=== PATIENT | male | born 1935 | race Caucasian/White ===

== ENCOUNTER 2018-12-03 03:44 | Emergency (ER) | payer MEDICARE, MEDICAID ==
--- NOTE | 2018-12-03 04:01 | ED Physician Chart ---
ED Chief Complaint/HPI - Patient Information Date Seen:: 12/03/18 Time Seen:: 03:56 Chief Complaint:: vomiting History of Present Illness:: this is an 83 yr old male alf patient was sent here for an evaluation after vomiting coffee ground vomitus and sustained trauma to the forehead from an accident. Allergies:: Allergies Allergy/AdvReac Type Severity Reaction Status Date / Time fluconazole Allergy Verified 12/03/18 03:48 levofloxacin [From Levaquin] Allergy Verified 12/03/18 03:48 methenamine Allergy Verified 12/03/18 03:48 Vitals:: Vital Signs - 8 hr 12/03/18 03:49 Temp 98.5 F HR 92 RR 16 BP 160/77 O2 Sat % 92 Historian:: Medical Records Review:: Nurse's Note Reviewed <Jeet Lao - Last Filed: 12/03/18 05:12> - Patient Information Allergies:: Allergies Allergy/AdvReac Type Severity Reaction Status Date / Time fluconazole Allergy Verified 12/03/18 03:48 levofloxacin [From Levaquin] Allergy Verified 12/03/18 03:48 methenamine Allergy Verified 12/03/18 03:48 Vitals:: Vital Signs - 8 hr 12/03/18 12/03/18 12/03/18 11:37 14:00 17:32 HR 76 80 75 RR 19 97 17 BP 146/62 146/62 164/66 O2 Sat % 100 97 100 <Arjun Miguel - Last Filed: 12/03/18 18:38> ED Review of Systems - Review of Systems General/Constitutional: No fever, No chills, No weight loss, No weakness, No diaphoresis, No edema, No loss of appetite, Other (this patient is unable to give a review of systems.) Skin: No skin lesions, No rash, No bruising Head: No headache, No light-headedness Eyes: No loss of vision, No pain, No diplopia ENT: No earache, No nasal drainage, No sore throat, No tinnitus Neck: No neck pain, No swelling, No thyromegaly, No stiffness, No mass noted Cardio Vascular: No chest pain, No palpitations, No PND, No orthopnea, No edema Pulmonary: No SOB, No cough, No sputum, No wheezing GI: No nausea, No vomiting, No diarrhea, No pain, No melena, No hematochezia, No constipation, No hematemesis G/U: No dysuria, No frequency, No hematuria Musculoskeletal: No bone or joint pain, No back pain, No muscle pain Endocrine: No polyuria, No polydipsia Psychiatric: No prior psych history, No depression, No anxiety, No suicidal ideation Hematopoietic: No bruising, No lymphadenopathy Allergic/Immuno: No urticaria, No angioedema Neurological: No syncope, No focal symptoms, No weakness, No paresthesia, No headache, No seizure, No dizziness, No confusion, No vertigo <Jeet Lao - Last Filed: 12/03/18 05:12> ED Past Medical History - Past Medical History Obtainable: Yes Past Medical History: HTN, DM, CVA/TIA, Dyslipidemia, ESRD, Dementia Family History: None Social History: Non Smoker, No Alcohol, No Drug Use, Care Facility Surgical History: None Psychiatricy History: Schizophrenia, Dementia Medication: Reviewed <Jeet Lao Last Filed: 12/03/18 05:12> Family Medical History - Family Member Mother History Unknown: Yes <ShiloJeet Busch Last Filed: 12/03/18 05:12> ED Physical Exam - Physical Examination General/Constitutional: Awake, Well-developed, well-nourished, Alert, No distress, GCS 15, Non-toxic appearing, Ambulatory Other Gen/Cons comments:: lethargic and not responsive to verbal commands. Head: Atraumatic (hematoma of the forehead) Eyes: Lids, conjuctiva normal, PERRL, EOMI Skin: Nl inspection, No rash, No skin lesions, No ecchymosis, Well hydrated, No lymphadenopathy ENMT: External ears, nose nl, Nasal exam nl, Lips, teeth, gums nl Neck: Nontender, Full ROM w/o pain, No JVD, No nuchal rigidity, No bruit, No mass, No stridor Respiratory: Nl effort/Exclusion, Clear to Auscultation, No Wheeze/Rhonchi/Rales Cardio Vascular: RRR, No murmur, gallop, rubs, NL S1 S2 GI: No tenderness/rebounding/guarding, No organomegaly, No hernia, Normal BS's, Nondistended, No mass/bruits, No McBurney tenderness : No CVA tenderness Extremities: No tenderness or effusion, Full ROM, normal strength in all extremities, No edema, Normal digits & nails Other Extremities comments:: severe muscle wasting of all four extremities. Neuro/Psych: Alert/oriented (the patient is alert and verbal but slightly lethargic), DTR's symmetric, Normal sensory exam, Normal motor strength, Judgement/insight normal, Mood normal, Normal gait, No focal deficits Other Neuro/Psych comments:: generalize weakness and disoriented times four there is partial paralysis of both upper extremities Misc: Normal back, No paraspinal tenderness <Jeet Lao - Last Filed: 12/03/18 05:12> ED Labs/Radiology/EKG Results - Radiology Results Results: ct scan of the head = subdural hemorrhage along the right frontotempral area ct of the abdomen = distented stomach, distended bladder, ,compression deformity ot t12 - EKG Interpretations EKG Time:: 04:35 Rate & Rhythm: rate =82, sinus Speer: left <Jeet aLo - Last Filed: 12/03/18 05:12> - Lab Results Results: Laboratory Tests 12/03/18 12/03/18 12/03/18 05:43 05:43 05:43 WBC 10.8 RBC 3.70 L Hgb 8.8 L Hct 27.9 L MCV 75.4 L MCH 23.7 L MCHC Differential 31.4 RDW 16.9 Plt Count 324 MPV 8.3 Add Manual Diff YES Neutrophils (Manual) 79 Lymphocytes 16 L Monocytes 4 Eosinophils 1 Platelet Estimate ADEQUATE Microcytosis 1+ PT 10.8 INR 1.04 Sodium 149 H Potassium 3.3 L Chloride 106 Carbon Dioxide 34.6 H Anion Gap 11.7 BUN 28 H Creatinine 1.0 Est GFR ( Amer) TNP Est GFR (Non-Af Amer) TNP BUN/Creatinine Ratio 28.0 Glucose 154 H Calcium 9.0 Total Bilirubin 0.3 AST 40 H ALT 45 Alkaline Phosphatase 141 H Troponin I Total Protein 6.9 Albumin 3.3 L Globulin 3.6 Albumin/Globulin Ratio 0.9 L Amylase 54 12/03/18 05:43 WBC RBC Hgb Hct MCV MCH MCHC Differential RDW Plt Count MPV Add Manual Diff Neutrophils (Manual) Lymphocytes Monocytes Eosinophils Platelet Estimate Microcytosis PT INR Sodium Potassium Chloride Carbon Dioxide Anion Gap BUN Creatinine Est GFR ( Amer) Est GFR (Non-Af Amer) BUN/Creatinine Ratio Glucose Calcium Total Bilirubin AST ALT Alkaline Phosphatase Troponin I 0.01 Total Protein Albumin Globulin Albumin/Globulin Ratio Amylase <Arjun Miguel - Last Filed: 12/03/18 18:38> ED Assessment - Assessment General Assessment: subdural hematoma bladder distention upper gi bleeding anemia <Jeet Lao - Last Filed: 12/03/18 05:12> ED Septic Shock - . Is Septic Shock (SBP<90, OR Lactate>4 mmol\L) present?: No - <6hrs of presentation: Vital Signs: Vital Signs - 8 hr 12/03/18 03:49 Temp 98.5 F HR 92 RR 16 BP 160/77 O2 Sat % 92 <Jeet Lao - Last Filed: 12/03/18 05:12> - . Is Septic Shock (SBP<90, OR Lactate>4 mmol\L) present?: No - <6hrs of presentation: Vital Signs: Vital Signs - 8 hr 12/03/18 12/03/18 12/03/18 11:37 14:00 17:32 HR 76 80 75 RR 19 97 17 BP 146/62 146/62 164/66 O2 Sat % 100 97 100 <Arjun Miguel - Last Filed: 12/03/18 18:38> ED Reassessment (Disposition) - Reassessment Reassessment Condition:: Unchanged - Diagnosis Diagnosis:: subdural hematoma bladder distention stomach distention upper gi bleeding anemia <Jeet Lao - Last Filed: 12/03/18 05:12> - Reassessment Reassessment Condition:: Improved - Aftercare/Follow up Instructions Aftercare/Follow-Up Instructions:: Counseled pt regarding lab results/diagnosis & need follow up, Counseled pt & family regarding lab results/diagnosis & need follow up Medication Prescribed:: pt to be transferred as a direct admission to a [facility] ICU Unit via [facility] - Patient Disposition Discharge/Transfer:: Acute Care (other hosp) Time Called:: 0700 Time Responded:: 07:00 Admitted to:: ICU Condition at Disposition:: Stable, Improved <Arjun Miguel - Last Filed: 12/03/18 18:38>
[2018-12-03] MEDS ORDERED: Sodium Chloride 0.45% 500 ML IV ONE (05:14)
[2018-12-03 06:03] LABS: HEMATOCRIT 27.9 % (41.0-60); HEMOGLOBIN 8.8 gm/dL (12-16); MEAN CELL VOLUME 75.4 fl (80-99); MEAN CORPUSCULAR HEMOGLOBIN 23.7 pg (27.0-31.0); MEAN CORPUSCULAR HGB CONC 31.4 pg (28.0-36.0); MEAN PLATELET VOLUME 8.3 fl; PLATELET COUNT 324 Th/cmm (150-400); RED CELL DISTRIBUTION WIDTH 16.9 % (11.5-20.0); WHITE BLOOD COUNT 10.8 Th/cmm (4.8-10.8)
[2018-12-03 06:19] LABS: ALB/GLOB RATIO 0.9 (1.0-1.8); ALBUMIN 3.3 gm/dL (4.2-5.5); ALKALINE PHOSPHATASE 141 U/L (34-104); AMYLASE SERUM 54 U/L (29-103); ANION GAP 11.7 (7.0-16.0); BILIRUBIN,TOTAL 0.3 mg/dL (0.3-1.0); BUN - UREA NITROGEN 28 mg/dL (7-25); CARBON DIOXIDE 34.6 mEq/L (21.0-31.0); CHLORIDE 106 mEq/L (98-107); GLUCOSE 154 mg/dL (70-105); POTASSIUM SERUM 3.3 mEq/L (3.5-5.1); SGOT 40 U/L (13-39); SGPT/ALT 45 U/L (7-52); SODIUM SERUM 149 mEq/L (136-145); TOTAL PROTEIN,SERUM 6.9 gm/dL (6.0-8.3)
[2018-12-03 06:23] LABS: INR 1.04 (0.5-1.4); PROTHROMBIN TIME (TEST) 10.8 SECONDS (9.5-11.5)
[2018-12-03 06:53] LABS: EOSINOPHIL 1 % (0-5); LYMPHOCYTE 16 % (20-50); MONOCYTE 4 % (2-10); NEUTROPHILS 79 % (40-80); PLATELET ESTIMATE ADEQUATE (NORMAL)
--- NOTE | 2018-12-03 09:05 | Diagnostic Imaging Report ---
Exam: CT examination of the abdomen pelvis. HISTORY: Vomiting Total DLP equals 571 CTDI equals 10.2 Findings: Multiple contiguous thin section of the abdomen pelvis obtained from lower thorax to pubic symphysis without the administration intravenous or oral contrast material, no prior studies available for comparison. The study demonstrates space left collecting cyst. There is evidence of cardiomegaly. There is no evidence of pleural effusions. The liver parenchyma and spleen are intact. The stomach is greatly distended with food content and air. The gallbladder is normal. There is evidence for hiatal hernia. The kidneys demonstrate bilateral hydronephrosis with a hydroureter is. The urinary bladder is significantly distended. Large amount of fecal content is noted in the rectum. There is evidence for deformity of T12 thoracic vertebra most likely represent old fracture with a retropulsed single of the bone in the neural canal stenosis. There is no evidence of diverticular disease of diverticulitis. Mild calcification of abdominal aorta appreciated. IMPRESSION: Atelectatic changes lung bases, cardiomegaly Significant distended with stomach with fluid content and air. Massive distention of urinary bladder with subsequent hydronephrosis. Large amount of fecal content in the rectum.
--- NOTE | 2018-12-03 09:07 | Diagnostic Imaging Report ---
Exam: CT examination of brain HISTORY: Trauma Total DLP equals 746 CTDI equals 39.6 Findings: Multiple views of the section of the brain were obtained from the base of skull to the vertex without the administration of contrast material, no prior studies available comparison. The study demonstrates a trace of subdural hemorrhage along the right frontotemporal convexity upper 4 mm in thickness. Follow-up examination recommended. There is no evidence of edema midline shift. Prominence of ventricular cisterns and the sulci consistent with atrophy. The bony calvarium is intact the paranasal sinuses are well aerated. IMPRESSION: A small 4 mm subdural hematoma right frontal temporoparietal convexity. Follow-up examination recommended.
[2018-12-04 08:08] LABS: IRON LC 32 ug/dL (38-169); TIBC (LC) 292 ug/dL (250-450); UIBC 260 ug/dL (111-343)
== END 2018-12-03 18:53 | disposition short-term general hospital (02) ==
LOC: ER 03:44
DX: S06.5X9A Traumatic subdural hemorrhage with loss of consciousness of unspecified duration, initial encounter (principal); N32.89 Other specified disorders of bladder; K92.2 Gastrointestinal hemorrhage, unspecified; D64.9 Anemia, unspecified; R11.10 Vomiting, unspecified; E78.5 Hyperlipidemia, unspecified; I12.0 Hypertensive chronic kidney disease with stage 5 chronic kidney disease or end stage renal disease; E11.22 Type 2 diabetes mellitus with diabetic chronic kidney disease; N18.6 End stage renal disease; F03.90 Unspecified dementia, unspecified severity, without behavioral disturbance, psychotic disturbance, mood disturbance, and anxiety; F20.9 Schizophrenia, unspecified; Z88.1 Allergy status to other antibiotic agents; Z88.8 Allergy status to other drugs, medicaments and biological substances; X58.XXXA Exposure to other specified factors, initial encounter; Y93.89 Activity, other specified; Y92.89 Other specified places as the place of occurrence of the external cause; Y99.8 Other external cause status
CPT/HCPCS: 99285; 96361; 96374; 93005; 70450; 74176; 84484; 36415; 83550; 85007; 85025; 85610; 82150; 83540; 80053; J2405; Z7610